=== PATIENT | male | born 1990 | race Caucasian/White ===

== ENCOUNTER 2021-09-01 13:30 | Emergency (ER) | payer OTHER, SELFPAY ==
[2021-09-01] VITALS (9 sets, daily range): BP systolic 142–177; BP diastolic 89–130; PULSE 87–160; RESP 20; TEMP 36.9–37.1; O2SAT 94–98
--- NOTE | ~2021-09-01 | XR_ITS ---
EXAMINATION: XR chest 2V DATE: 09/01/2021 14:37 INDICATION: Tachycardia. TECHNIQUE: Frontal and lateral views of the chest were obtained. COMPARISON: None. FINDINGS: The chest demonstrates clear lungs without pneumonia, pleural effusion, or pneumothorax. Th e heart size is normal. IMPRESSION: 1. No acute cardiopulmonary disease. Reviewed, dictated and finalized at location A. RK MACHINE OPERATOR
--- NOTE | 2021-09-01 13:40 | ED.PSYCH ---
HPI - Psych General Chief Complaint: Psychiatric Symptoms Stated Complaint: mental eval Time Seen by Provider: 09/01/21 13:40 Source: patient and police Mode of arrival: ambulatory Limitations: no limitations History of Present Illness HPI Narrative: 31-year-old man brought to the emergency department by PD after he was observed by his significant other holding a gun to his head on camera and asking, is this which you want?? He had had an argument with her this morning and states that he got carried away and felt very upset. States that he has been under a lot of pressure at work and that for months he has been drinking every day. States that he did drink vodka today. He denies any prior hospitalizations. He states he no longer feels like harming himself, does not feel like harming on anyone else, and feels less upset than he did earlier. complaint: suicidal ideation Onset (ago): hour(s) (<3) Duration: resolved prior to arrival History of same: No Context: recent alcohol abuse and other (Relationship difficulties with his girlfriend, stress at work.) Associated psychiatric symptoms: suicidal ideation Associated symptoms: denies other symptoms Treatments prior to arrival: placed on mental health hold If self harm: admits thoughts of self harm Details of plan: Patient threatened self-harm while significant other was watching on a home security camera. Related Data Home Medications Medication Instructions Recorded Confirmed No Home Medications 09/01/21 09/01/21 Allergies Allergy/AdvReac Type Severity Reaction Status Date / Time No Known Allergies Allergy Verified 09/01/21 16:50 Review of Systems Review of Systems: All systems reviewed & are unremarkable except as noted in HPI and below Constitutional: Constitutional: Denies chills and Denies fever(s) Eyes: Eyes: Denies change in vision and Denies photophobia ENT: Denies nasal congestion and Denies sore throat Cardiovascular: Cardiovascular: Denies chest pain and Denies radiating jaw, neck or arm pain Respiratory: Respiratory: Denies cough, Denies dyspnea and Denies wheezing Gastrointestinal: Gastrointestinal: Denies abdominal pain, Denies nausea and Denies vomiting Integumentary/Breasts: Skin/Breast: Denies pruritus, Denies erythema and Denies rash Neurologic: Denies vertigo, Denies dizziness, Denies syncope and Denies focal weakness Hematologic/Lymphatic: Hematologic/Lymphatic: Denies easy bleeding and Denies easy bruising [facility] Social History Social History (Updated 09/01/21 @ 14:42 by Joaquin Mora MD) Alcohol intake: current Alcohol use details: Daily Living arrangements: with family Occupation/Education: occupation Exam Const: General: healthy appearing, no acute distress and alert Orientation/consciousness: patient oriented x3 Limitations: no limitations HENMT: Head: normal to inspection Ears: external ears normal, TM's normal bilaterally, EAC's normal and Abnormal EAC present General nose exam: Normal nares present Face and sinus: normal facial exam Mouth: Yes moist mucous membranes abnormal Teeth and gingiva: abnormal tooth and associated gingiva Eyes: Conjunctivae: conjunctivae normal Pupils: Equal, round and reactive pupils present EOM: EOMs intact bilaterally Resp: Effort & Inspection: normal respiratory effort and not labored Auscultation: clear to auscultation bilaterally, no rales, no rhonchi and no wheezes Cardio: Rate: tachycardic Rhythm: regular rhythm Skin: General skin exam: normal color, no jaundice and no pallor Rashes: no rashes Neuro: General: patient oriented x3, moves all extremities and CN's II-XI intact bilaterally Speech: normal speech Gait exam (Neuro): Normal gait present Extrem: General: normal to inspection and no clubbing, cyanosis or edema Psych: Appearance: grossly normal and well kempt Mental Status: mental status grossly normal Affect: normal affect Attitude: cooperative
--- NOTE | 2021-09-01 13:46 | ECG_ITS ---
Measurements Intervals [place] Rate: 133 P: 67 [place]: 138 QRS: 36 QRSD: 89 T: 46 QT: 296 QTc: 442 Interpretive Statements SINUS TACHYCARDIA ABNORMAL ECG Electronically Signed On 09-01-2021 14:21:20 RECEIVING AND PROCESSING SUPERVISOR by Bj Carter D.O.
[2021-09-01 14:21] LABS: Basophils Absolute Auto 0.07 K/mm3 (0.00-0.10); Basophils Percent Auto 0.9 % (0.0-1.0); Eosinophils Absolute Auto 0.06 K/mm3 (0.02-0.50); Eosinophils Percent Auto 0.8 % (1.0-6.0); Hematocrit 49.3 % (40.0-54.0); Immature Granulocyte Absolute 0.06 K/mm3 (0.00-0.00); Immature Granulocyte Percent A 0.8 % (0.0-0.0); Lymphocytes Absolute Auto 2.64 K/mm3 (1.10-4.50); Lymphocytes Percent Auto 33.7 % (18.0-42.0); Mean Corpuscular HGB Conc 34.5 g/dL (32.0-36.0); Mean Corpuscular Hemoglobin 34.3 pg (27.0-31.0); Mean Corpuscular Volume 99.4 fL (78.0-102.0); Mean Platelet Volume 9.3 fl (8.7-11.0); Monocytes Absolute Auto 0.59 K/mm3 (0.10-0.90); Monocytes Percent Auto 7.5 % (2.0-11.0); Neutrophils Absolute Auto 4.4 K/mm3 (1.7-7.2); Neutrophils Percent Auto 56.3 % (50.0-70.0); Platelet Count Result 275 K/mm3 (150-420); Red Blood Count 4.96 M/mm3 (4.70-6.10); Red Cell Distribution Width 11.9 % (11.6-14.4); White Blood Count 7.8 K/mm3 (4.8-10.8)
[2021-09-01 14:24] LABS: SARS-CoV-2 Ag Negative (Negative)
[2021-09-01 14:45] LABS: Alanine Aminotransferase 144 U/L (16-63); Albumin Level 4.1 g/dL (3.4-5.0); Alkaline Phosphatase 128 U/L (46-116); Anion Gap 20 mmol/L (8-16); Aspartate Amino Transferase 149 U/L (15-37); Bilirubin,Total 0.6 mg/dL (0.00-1.00); Blood Urea Nitrogen 11 mg/dL (7-18); Calcium 8.8 mg/dL (8.5-10.1); Carbon Dioxide 20 mmol/L (21-32); Chloride 99 mmol/L (98-108); Estimated CRCL calculation 91 ml/min; Estimated Glomerular Filt Rate > 60; Glucose 112 mg/dL (70-99); Osmolality Calculated 288 mOsm/kg (285-295); Potassium 3.4 mmol/L (3.5-5.1); Sodium 139 mmol/L (136-145); Thyroid Stimulating Hormone 2.95 uIU/mL (0.36-3.74); Total Protein 8.2 g/dL (6.4-8.2)
[2021-09-01 14:47] LABS: Acetaminophen < 2 ug/mL (10-30)
[2021-09-01 14:48] LABS: Ethanol 218 mg/dL (0-6)
[2021-09-01 16:22] LABS: Add Urine Microscopic? YES; Appearance Urine Clear (Clear); Bilirubin Urine Negative (Negative); Blood Urine Negative (Negative); Color Urine Yellow (Yellow); Glucose Urine UA Negative (Negative); Ketones Urine 1+ (Negative); Leukocyte Esterase Ur Negative LEU/UL (Negative); Nitrate Urine Negative (Negative); Protein Urine 1+ (Negative); Specific Grav Ur >= 1.030 (1.010-1.020); Urobilinogen Urine 0.2 mg/dL (0.2-1.0)
[2021-09-01 16:26] LABS: Bacteria Urine 1+ /hpf; Mucus Urine Moderate /lpf; RBC Urine None seen /hpf (0-2); Squamous Epithelial Cell Urine Rare /hpf (Few); WBC Urine None seen /hpf (0-3)
[2021-09-01 16:29] LABS: Amphetamine Screen Urine Negative (Negative); Barbiturate Screen Urine Negative (Negative); Benzodiazepines Screen Urine Negative (Negative); Cannabinoid Screen Urine Negative (Negative); Cocaine Screen Urine Negative (Negative); Methadone Screen Urine Negative (Negative); Opiate Screen Urine Negative (Negative); Phencyclidine Screen Urine Negative (Negative)
[2021-09-01] MEDS: SODIUM CHLORIDE 0.9% IV 1,000 ML 999 ML IV CONT (18:11)
[2021-09-01] MEDS: METOPROLOL TARTRATE 25 MG TABLET PO (18:27)
--- NOTE | 2021-09-01 18:47 | PC.NURSE ---
discussed bedside glucose check for pt with dr patricio. dr patricio stated dont do it
--- NOTE | 2021-09-01 19:13 | PC.NURSE ---
pt awake and accompanied to bathroom. cooperative with care. no needs voiced. no suicidal statement made at this time.
--- NOTE | 2021-09-01 19:15 | PC.NURSE ---
pt remains in direct vision of this health science writer. remains on threat monitoring analyst.
[2021-09-01 20:14] LABS: Ethanol 39 mg/dL (0-6)
--- NOTE | 2021-09-01 21:16 | PC.NURSE ---
meal provided. informed of wait period for crisis counselor. voiced understanding
[2021-09-02 01:24] VITALS: BP 164/105; PULSE 72; RESP 20; TEMP 37.1; O2SAT 98
[2021-09-02 01:25] VITALS: BP 139/98
[2021-09-02 01:54] VITALS: BP 138/87; PULSE 78; RESP 20; TEMP 37.1; O2SAT 98
== END 2021-09-02 01:58 | disposition home or self-care (01) ==
LOC: CHSED 13:34
PROVIDERS: Emergency Provider Emergency Medicine
DX: R45.851 Suicidal ideations (principal); F10.10 Alcohol abuse, uncomplicated; Z20.822 Contact with and (suspected) exposure to COVID-19
CPT/HCPCS: 36415; 71046; 80053; 80307; 81001; 84443; 85025; 87426; 93005; 96365; 96366; 99284; A9270; C9803; J3411; J3475; J7030; J7121